=== PATIENT | male | born 1965 | race Caucasian/White ===

== ENCOUNTER 2017-09-29 | Emergency (ER) | END 2017-09-29 12:28 | disposition home or self-care (01) ==

== ENCOUNTER 2019-10-30 10:02 | Emergency (ER) | payer OTHER ==
[2019-10-30 10:11] VITALS: BP 147/96
--- NOTE | 2019-10-30 10:15 | ED Physician Documentation ---
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 the rash has gotten more red and larger yesterday/today, and has several blisters today. 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 Was wearing shorts, so that part of thigh was exposed.). No: Exposed to Poison greg/oak, Insect bite /sting, Recent illness Similar symptoms before: Has not had sx before Review of Systems Constitutional: denies: Fever, Chills, Myalgias Nose: denies: Rhinorrhea / runny nose, Congestion Throat: denies: Sore throat Respiratory: denies: Cough GI: denies: Nausea, Vomiting Skin: denies: Abrasion (s), Laceration (s) Neurologic: denies: Focal weakness, Numbness PD PAST MEDICAL HISTORY - Past Medical History Past Medical History: No - Past Surgical History Past Surgical History: Yes General: Appendectomy - Present Medications Home Medications: Ambulatory Orders Medication Instructions Recorded Confirmed Betamethasone Valerate 1 applic TP BID #15 cream..g. 10/30/19 Cetirizine [ZyrTEC] 10/30/19 Cetirizine [ZyrTEC] 10 mg PO DAILY #15 tablet 10/30/19 Doxycycline Monohydrate 100 mg PO BID #10 tablet 10/30/19 - Allergies Allergies/Adverse Reactions: Allergies Allergy/AdvReac Type Severity Reaction Status Date / Time Penicillins Allergy Unknown Verified 10/30/19 10:11 - Social History Does the pt smoke?: No Smoking Status: Never smoker Does the pt drink ETOH?: No Does the pt have substance abuse?: No - Immunizations Immunizations are current?: Yes - POLST Patient has POLST: No PD ED PE NORMAL - Vitals Vital signs reviewed: Yes - General General: Alert and oriented X 3, No acute distress, Well developed/nourished - Derm Derm: Normal color, Warm and dry, Other (right medial thigh lower with area of redness/warmth that extends to mid thigh. No red streaking. Has 3 tense blisters of clear/yellow fluid about 1 cm size. No purulence. These were lanced open with scalpel tip and fluid cultured. 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 ), d/w pat ient Departure - Departure Disposition: 01 Home, Self Care Clinical Impression: Contact dermatitis Qualifiers: Contact dermatitis type: irritant Contact dermatitis trigger: unspecified trigger Qualified Code(s): L24.9 - Irritant contact dermatitis, unspecified cause Condition: Stable Record reviewed to determine appropriate education?: Yes Instructions: ED Dermatitis Contact Follow-Up: JEM ALBA [Primary Care Provider] - Prescriptions: Betamethasone Valerate 1 applic TP BID #15 cream..g. Doxycycline Monohydrate 100 mg PO BID #10 tablet Cetirizine [ZyrTEC] 10 mg PO DAILY #15 tablet Comments: This looks most likely to be a local reaction either contact on the surface or local bite such as a spider bite. Use antihistamine for itchiness and also a topical steroid to the area twice daily to reduce redness and inflammation. There are some skin infections that can look like this. We did a culture of the fluid and will result in 2 days to see if there is any signs of bacterial infection instead. Take the doxycycline twice daily until that results and then it can be discontinued if there is no signs of infection based on that. Typically we will call you with positive culture results Discharge Date/Time: 10/30/19 10:50
[2019-10-30] MEDS ORDERED: DOXYCYCLINE 100 MG TABLET PO STA (10:38)
[2019-10-30] MEDS ORDERED: CHERRY SYRUP 10 ML UDC PO ONE (10:38)
[2019-10-30] MEDS ORDERED: DEXAMETHASONE 10 MG/ML VIAL PO STA (10:38)
[2019-10-30] MEDS ORDERED: CETIRIZINE 10 MG TABLET PO STA (10:38)
== END 2019-10-30 10:50 | disposition home or self-care (01) ==
LOC: ED 10:02
DX: L24.9 Irritant contact dermatitis, unspecified cause (principal)
CPT/HCPCS: 87070; 87205; 99283; A9270